=== PATIENT | male | born 1975 | race Caucasian/White ===

== ENCOUNTER → 2024-02-02 09:08 | Outpatient (REF) | payer BC, SELFPAY | LOC: RAD 09:08 | PROVIDERS: ATTENDING PHYSICIAN Surgery; FAMILY PHYSICIAN Family Medicine | DX: K43.9 Ventral hernia without obstruction or gangrene (principal) | CPT/HCPCS: 74176 ==

== ENCOUNTER → 2024-03-15 20:34 | Outpatient (REF) | payer BC, SELFPAY | LOC: MRI 20:34 | PROVIDERS: ATTENDING PHYSICIAN Family Medicine | DX: S05.50XA Penetrating wound with foreign body of unspecified eyeball, initial encounter (principal) | CPT/HCPCS: 70030 ==

== ENCOUNTER 2024-03-19 06:11 | Day surgery (SDC) | payer BC, SELFPAY ==
[2024-03-08 08:54] LABS: Hematocrit 42.7 % (39.0-52.0); Mean Corp Hgb Conc. 35.1 g/dL (33.0-37.0); Mean Platelet Volume 9.2 fL (7.4-10.4); Platelet Count 221 10^3/uL (130-400); Red Blood Cell Count 4.69 10^6/uL (4.70-6.10); Red Cell Dist. Width 12.5 % (11.5-14.5); White Blood Cell Count 5.3 10^3/uL (4.8-10.8)
[2024-03-08 09:05] LABS: ALT (SGPT) 31 U/L (0-50); AST (SGOT) 37 U/L (17-59); Albumin 4.4 g/dl (3.5-5.0); Alkaline Phosphatase 49 U/L (38-126); Blood Urea Nitrogen 12 mg/dl (9-20); Calcium 9.2 mg/dl (8.4-10.2); Carbon Dioxide 30 mmol/L (22-30); Chloride 101 mmol/L (98-107); Glucose 96 mg/dl (70-99); Potassium 4.2 mmol/L (3.5-5.1); Sodium 140 mmol/L (135-145); Total Bilirubin 1.1 mg/dl (0.2-1.3); Total Protein 7.3 g/dl (6.3-8.2); eGFR > 60.00
[2024-03-08 13:49] VITALS: BMI 26.9
[2024-03-19] VITALS (8 sets, daily range): BP systolic 144–158; BP diastolic 78–94; BMI 26.9
[2024-03-19] MEDS: TYLENOL 1000 MG PO (13:12)
[2024-03-19] MEDS: NORMOSOL-R/PLASMALYTE-A 1000 IV (13:20)
--- NOTE | 2024-03-19 14:27 | W.SUR.PREOP ---
Pre-Operative Surgical Note
-
I have examined this patient prior to the performance of the scheduled procedure.
The patient's condition is unchanged from the time of the current History and
Physical and the patient is able to undergo the scheduled procedure.
--- NOTE | 2024-03-19 14:27 | HP.FOC2 ---
Focused History & Physical
Chief Complaint
HPI:
Chief Complaint: Biliary colic
HPI / Indication for Planned Procedure: This is a 48-year-old male with biliary colic and an umbilical hernia
Relevant Past Medical History: Negative
Relevant Social History: Negative
Relevant Family History: Negative
Relevant Past Surgical History: Negative
Review of Systems
Review of Pertinent Systems: All Systems Negative
Medication
See Medication form for detailed medications: Yes
Medication List (including Herbals & OTC):
bupropion HCl 300 mg 24 hr tablet, extended release 300 mg PO DAILY 01/27/09
Magnesium-Calcium 1 dose PO HS 03/12/24
choline 180 mg PO AC 03/12/24
fluoxetine 10 mg tablet 30 mg PO DAILY 03/12/24
multivitamin 1 tab PO DAILY 03/12/24
Medications Reviewed: Yes
Allergies and Reactions
Patient has Allergies: No
Noted Allergies and Reactions:
Allergy/AdvReac Type Severity Reaction Status Date / Time
No Known Allergies Allergy Verified 03/19/24 13:05
Pertinent Physical Exam
All Other Systems: Negative
Head/Neck: Normal
Diagnosis / Assessment
This is a 48-year-old male with biliary colic and an umbilical hernia
Plan / Procedure
Laparoscopic cholecystectomy with cholangiogram and primary umbilical hernia repair
Anesthesia/Sedation to be done by Anesthesia Provider: Yes
--- NOTE | 2024-03-19 16:46 | W.IMMPOSTOP ---
Surgical Immed Post Op Note
-
Primary Surgeon: Kash Mayorga MD
Assisting Surgeon: None
Pre-op Diagnosis: Umbilical hernia, biliary colic
Post-op Diagnosis: Umbilical hernia, biliary colic, choledocholithiasis
Procedure Performed:
1. Open primary umbilical hernia repair
2. Laparoscopic cholecystectomy with cholangiogram
3. Laparoscopic transcystic common bile duct exploration
Anesthesia Type: General
Specimen / Cultures: Gallbladder and contents
Estimated Blood Loss: 3 cc
Complications: None
Operative Findings: The patient had a 2-1/2 cm fat-containing umbilical hernia that was reduced. A critical view of safety was obtained. The cystic duct had to be filleted open on the anterior surface to extract small gallstone that was impacted
in the cystic duct itself prior to the cholangiogram. Which demonstrated filling defect in the distal common bile duct. After administration of 1 mg of glucagon the catheter was advanced into the duodenum to dilate the ampulla and the obstructing
stone was flush successfully into the duodenum. There was no residual filling defects on the final cholangiogram. The duct was ligated with a 0 PDS Endoloop. The umbilical defect was repaired with three 0 PDS [id number] sutures.
--- NOTE | 2024-03-19 16:50 | OR.RPT ---
Operative Report
Operative Report
Patient Name: Toi Perez
: 1975
Date of Operation: 03/19/2024
Preoperative Diagnosis: Umbilical hernia, biliary colic
Postoperative Diagnosis: Umbilical hernia, biliary colic, choledocholithiasis
Procedure(s):
1. Open primary umbilical hernia repair
2. Laparoscopic Cholecystectomy with Cholangiogram
3. Laparoscopic transcystic common bile duct exploration
Surgeon(s):
Dr. Mayorga
Spring Fitter Helper(s):
MISAEL Meek
Anesthesia: General
Estimated Blood Loss: 3 cc
Urine Output: None
Drains/Lines/Implants: None
Specimens:
1. Gallbladder and contents
HPI/Surgical Indications:
This is a 48-year-old male who presented to my office with persistent postprandial right upper quadrant pain that he been suffering with for several years. Exam, labs and imaging are consistent with symptomatic cholelithiasis. He was also noted to
have fairly large but asymptomatic umbilical hernia on exam. Risks/Benefits/Alternatives were discussed at length, and the patient agreed to proceed with surgery.
Operative Findings: The patient had a 2-1/2 cm fat-containing umbilical hernia that was reduced. A critical view of safety was obtained. The cystic duct had to be filleted open on the anterior surface to extract small gallstone that was impacted
in the cystic duct itself prior to the cholangiogram. Which demonstrated filling defect in the distal common bile duct. After administration of 1 mg of glucagon the catheter was advanced into the duodenum to dilate the ampulla and the obstructing
stone was flush successfully into the duodenum. There was no residual filling defects on the final cholangiogram. The duct was ligated with a 0 PDS Endoloop. The umbilical defect was repaired with three 0 PDS [id number] sutures.
Procedure Description:
The patient was brought to the Operating Room and placed in the supine position. IV antibiotics were infused and sequential compression devices were confirmed to be on. Following uneventful induction of general endotracheal anesthesia, an
orogastric tube was placed. The abdomen was prepped and draped in the usual sterile fashion. A team timeout was performed confirming administration of DVT prophylaxis, IV antibiotics and SCDs. The skin was anesthestized with 0.25% Marcaine and an
infraumbilical incision was made and dissection carried down to the fascia. The hernia sac was then encircled and carefully dissected off of the umbilical stalk and debulked using 3-0 Vicryl ties before it was returned to the abdomen. The defect
measured 2.5 cm. A stay suture was placed prior to placement of our 12 mm balloon-tipped Kwadwo port. Pneumoperitoneum to 15 mmHg pressure was obtained without difficulty and we confirmed that no injury had occurred during our entry. The patient
was positioned in reverse trendelenberg and rotated with the right side up slightly. Three (3) 5mm trocars were then placed along the right subcostal margin. A locking grasping forceps was placed on the fundus of the gallbladder where it was then
retracted cephalad and to the right. Using appropriate grasping instruments, the peritoneum overlying the triangle of Calot was incised. The cystic duct/gallbladder junction was identified, dissected circumferentially. The cystic artery was
identified medially and was dissected circumferentially. A critical view was obtained. A clip was then placed on the cystic duct/gallbladder junction and a ductotomy was made. There was a visible deformity in the cystic duct consistent with stone
that we tried to milk back through our ductotomy, but this was to no avail so we filleted open the anterior portion of the duct to the level of the stone to release it. In order to make sure that the stone was not lost we switched to a 5mm camera
and removed the stone immediately. The duct was then dilated slightly with [place] forceps before cannulating it with a cholangiocatheter on an [place]ary clamp. An intraoperative cholangiogram performed using fluoroscopy, which showed good flow of dye
into the duodenum, but there was an extrahepatic distal common bile duct filling defect. There were no intra-hepatic bile duct filling defects. The biliary anatomy appeared normal. I initially attempted to advance the catheter through the CBD but
met resistance. I then flushed the duct with saline and had anesthesia administer 1 mg of glucagon. I then repositioned our cholangiocatheter through our middle right upper quadrant port. Repeat cholangiogram redemonstrated the filling defect.
The catheter was then advanced under fluoroscopy into the duodenum to dilate the ampulla. A subsequent cholangiogram showed the stone quickly passed through the ampulla into the duodenum and no residual filling defect was identified. Following
completion of the cholangiogram, the catheter was removed. A clip was placed on the duct proximally and distally and the duct was divided. 0 PDS Endoloop was placed on the cystic duct stump to reinforce her closure. Two clips were placed
proximally and one distally on the cystic artery, and the artery was divided. Remaining soft tissue attachments of the gallbladder to the liver bed were then divided using electrocautery. There was some spillage of bile from our ductotomy, but
there was no spillage of stones other than the one that was removed. The gallbladder bed was inspected and excellent hemostasis was obtained. The gallbladder was extracted through the 12 mm trocar site using an endocatch bag. The abdomen was again
irrigated and excellent hemostasis was assured. All remaining trocars were then removed and the pneumoperitoneum was evacuated. The umbilical hernia was then closed using 3 figure of 8 of 0 PDS suture. All trocar sites were closed at the skin
level using 4-0 Monocryl followed by Dermabond. Overall, the patient tolerated the procedure well and was taken to the Recovery Room postoperatively in stable condition.
Richa was the attending physician and performed the procedure with assistance of the PA above. The assistance of MISAEL Meek was required due to the complexity of the procedure. During the procedure Massiel assisted with retraction, resection, and
closure of the wound. I was present for all portions of the case, excluding skin closure.
Kash Mayorga MD
== END 2024-03-19 18:27 | disposition home or self-care (01) ==
LOC: SDS 06:11
PROVIDERS: ATTENDING PHYSICIAN Surgery; FAMILY PHYSICIAN Family Medicine
DX: K81.1 Chronic cholecystitis (principal); K42.9 Umbilical hernia without obstruction or gangrene
CPT/HCPCS: 47563; 49591; 88304; 36415; 74300; 76000; 80053; 85027; 93005; A4300; J1610

== ENCOUNTER → 2024-12-26 13:12 | Outpatient (REF) | payer BC, SELFPAY | LOC: HWRAD 13:12 | PROVIDERS: ATTENDING PHYSICIAN Nurse Practitioner Family | DX: M54.50 Low back pain, unspecified (principal) | CPT/HCPCS: 72131 ==